=== PATIENT | male | born 1980 | race Caucasian/White ===

== ENCOUNTER 2018-02-14 08:40 | Emergency (ER) | payer MEDICARE, MEDICAID, SELFPAY ==
[2018-02-14 08:45] VITALS: BP 133/95; PULSE 110; RESP 16; TEMP 36.3; O2SAT 99
[2018-02-14] MEDS: Normal Saline 1,000 ML 1000 ML IV ×2 (09:20→10:20)
[2018-02-14 09:31] LABS: Abs Immature Grans 0.02 k/cumm (0.0-0.09); Absolute Basophil Count 0.02 k/cumm (0.0-0.2); Absolute Lymphocyte Count 1.54 k/cumm (1.2-3.4); Absolute Monocyte Count 0.71 k/cumm (0.11-0.7); Basophils % 0.2; Eosinophils % 0.4; HCT 43.6 % (40.0-50.0); HGB 14.5 g/dL (13.5-17.5); Immature Grans % 0.2; Lactate-non-spesis 0.8 mmol/L (0.6-1.4); Lymphocytes % 13.8; Mean Corp. HGB Concentration 33.3 g/dL (32.0-36.0); Mean Corpuscular Hemoglobin 30.4 pg (27.0-33.0); Mean Corpuscular Volume 91.4 fL (80-95); Mean Platelet Volume 11.1 fL (8.0-11.0); Monocytes % 6.4; Platelet Count 228 x1000/uL (130-400); RBC 4.77 m/cumm (4.50-6.00); RBC Distribution Width 12.8 % (11.8-14.1); White Blood Cell Count 11.17 k/cumm (4.4-10.8)
[2018-02-14 09:33] LABS: Absolute Eosinophil Count 0.04 k/cumm (0.0-0.7); Absolute Neutrophil Count 8.82 k/cumm (1.2-6.7)
[2018-02-14 09:49] LABS: ALT 23 U/L (12-78); AST 15 U/L (15-37); Albumin 3.9 g/dL (3.4-5.0); Alkaline Phosphatase 74 U/L (46-116); Anion Gap 10.4 mmol/L (3-11); BUN 10 mg/dL (7-18); Bilirubin, Total 0.9 mg/dL (0.2-1.0); CO2 26.6 mmol/L (21.0-32.0); CREATININE 0.82 mg/dL (0.70-1.30); Calcium 9.2 mg/dL (8.5-10.1); Chloride 100 mmol/L (98-107); Glucose 111 mg/dL (70-100); Potassium 3.8 mmol/L (3.5-5.1); Sodium 137 mmol/L (136-145); Total Protein 8.1 g/dL (6.4-8.2)
[2018-02-14] MEDS: CLINDAMYCIN 600 MG/50 ML BAG 100 MG IVPB (10:17)
[2018-02-14 10:24] VITALS: BP 137/84; PULSE 74; RESP 14; TEMP 37.2; O2SAT 100
[2018-02-14 11:25] VITALS: BP 140/95; PULSE 97; RESP 20; TEMP 36.5; O2SAT 99
--- NOTE | 2018-02-15 08:25 | W.ED.GENAD ---
Discharge Plan Disposition Patient Disposition: HOME Condition: Good Discharge Details Chief Complaint: Cellulitis Clinical Impression: Cellulitis, Abscess Primary Care Provider: Zia Puente ED Provider: Robbie Guillen Home Meds and New Rx's Prescriptions: New clindamycin HCl 150 mg capsule 450 mg PO TID 10 Days Qty: 90 RF: 0 acetaminophen [Mapap Extra Strength] 500 MG tablet 1,000 mg PO Q6H 5 Days Qty: 60 RF: 0 ibuprofen [Motrin IB] 200 MG tablet 600 mg PO Q6H 5 Days Qty: 60 RF: 0 No Action buprenorphine-naloxone [Suboxone] 1 EACH film 14 mg Sublingual DAILY RF: 0 buspirone 10 MG tablet 10 mg PO BID 30 Days Qty: 60 RF: 3 pregabalin 75 mg capsule 75 mg PO BID 90 Days Qty: 180 RF: 0 Discharge Instructions Instructions: Cellulitis (ED), Abscess (ED) Additional Instructions: Please take the antibiotic as directed. Do not miss any doses. Please follow-up with your primary care provider tomorrow morning. If you notice any worsening of your symptoms, or any new symptoms such as vomiting, spreading of your redness, diarrhea, fever, chills, shortness of breath, chest pain, numbness, weakness, or fainting , please return immediately to the emergency department for reevaluation. Please follow up with your primary care provider as soon as possible for reassessment and reevaluation. As always, it was a pleasure participating in your medical care today. Referrals: Zia Puente DO [Primary Care Provider] - Discharge Data Discharge Date/Time-TO BE ENTERED AT DEPARTURE: 02/14/18 11:36 Medical Decision Making This is a pleasant 37-year-old male who presents for evaluation of bilateral cellulitis over his wrists. He recently injected with a new type of heroin using 1 of his own dirty needles. Since then he has been having redness and swelling in the area. He denies having the needle broken off, or any other complications with the initial injection peer physical exam demonstrates 2 cellulitic areas with a diameter of roughly 6 cm one on each wrist at the lateral aspect at the distal radius. There is fluctuance noted and confirmed with bedside ultrasound. Patient also did have some associated mild tachycardia but no fever. Patient was started on IV clindamycin, rehydrated. Laboratory workup shows a minimally elevated white count at 11.17. His lactate is normal. Remainder of his laboratory workup is relatively benign. Rehydration his vital signs normalized. The patient's abscesses were incised, drained, and packed at bedside. He tolerated this well. He was given an antibiotic for oral clindamycin, and given very specific discharge instructions about the importance of close follow-up, antibiotic use, good hydration, and prompt return for any concerning red flags. With no signs of sepsis, I feel he can be safely discharged home. I have extensively reviewed the treatment plan and discharge instructions with the patient. I have addressed all patient concerns at this time. The patient was made aware of what symptoms to monitor for that would warrant a return to the emergency department. Discussed the plan with the patient, they demonstrate verbal understanding and agreement with our assessment and plan at this time. Left wrist: Time out was taken to identify the correct patient, procedure, and site. Risks and benefits were discussed with the patient and consent was obtained. Ultrasound was used to locate the site of maximal fluid collection on both wrists. The site was sterilized and draped in the typical fashion. Lidocaine 1% with epi 5ml was instilled into the surrounding tissue. Appropriate analgesia was obtained. The abscess was incised with an 11 blade, and a large amount of purulent material and blood were expressed. The wound was flushed with sterile saline under pressure irrigation with chlorhexidine. The wound was packed, cleaned, and dressed. Blood loss was minimal. The patient tolerated the procedure well. There were no complications. Postprocedure the patient continued to demonstrate good sensation, brisk capillary refill, normal radial and ulnar pulses. Right wrist: Time out was taken to identify the correct patient, procedure, and site. Risks and benefits were discussed with the patient and consent was obtained. Ultrasound was used to locate the site of maximal fluid collection on both wrists. The site was sterilized and draped in the typical fashion. Lidocaine 1% with epi 5ml was instilled into the surrounding tissue. Appropriate analgesia was obtained. The abscess was incised with an 11 blade, and a large amount of purulent material and blood were expressed. The wound was flushed with sterile saline under pressure irrigation with chlorhexidine. The wound was packed, cleaned, and dressed. Blood loss was minimal. The patient tolerated the procedure well. There were no complications. Postprocedure the patient continued to demonstrate good sensation, brisk capillary refill, normal radial and ulnar pulses. HPI General Date/Time Provider Initiated Documentation: 02/14/18 08:57. HPI Narrative: This is a 37-year-old male with a past medical history of tobacco abuse, IV drug use, hypertension, and alcohol abuse. He presents today for evaluation of cellulitis and abscess on his wrist bilaterally. Patient states that 3 days ago he injected in both of his wrists with a different batch of heroin that he would normally use. He was using a dirty needle, but it was one that he had only used. He denies looking the needle prior to use. He states that since then he has had redness and swelling in his distal lateral wrists bilaterally, with associated chills, occasional night sweats, and notable pain. He denies any numbness tingling or weakness. He denies any cough, fever, or shortness of breath. He denies any nausea, vomiting or diarrhea. He denies any other recent drug use. Patient has no other complaints at this time Related Data Home Medications Medication Instructions Recorded Confirmed buprenorphine-naloxone [Suboxone 8 14 mg SUBLINGUAL DAILY film 11/13/17 02/14/18 Mg-2 Mg Sl Film] buspirone 10 mg PO BID 30 Days #60 tab-cap 01/05/18 02/14/18 pregabalin 75 mg capsule 75 mg PO BID 90 Days #180 tab-cap 02/01/18 02/14/18 acetaminophen [Mapap Extra 1,000 mg PO Q6H 5 Days #60 tab 02/14/18 Strength] clindamycin HCl 450 mg PO TID 10 Days #90 cap 02/14/18 ibuprofen [Motrin Ib] 600 mg PO Q6H 5 Days #60 tab 02/14/18 Previous Rx's Medication Instructions Recorded buspirone 10 mg PO BID 30 Days #60 tab-cap 01/05/18 pregabalin 75 mg capsule 75 mg PO BID 90 Days #180 tab-cap 02/01/18 acetaminophen [Mapap Extra 1,000 mg PO Q6H 5 Days #60 tab 02/14/18 Strength] clindamycin HCl 450 mg PO TID 10 Days #90 cap 02/14/18 ibuprofen [Motrin Ib] 600 mg PO Q6H 5 Days #60 tab 02/14/18 Allergies Allergy/AdvReac Type Severity Reaction Status Date / Time No Known Allergies Allergy Unverified 02/14/18 08:57 General Stated Complaint: Cellulitis CHYNA: 3 Review of Systems Review of Systems All systems reviewed & are unremarkable except as noted in HPI and below PFSH Family History Mother Alcohol abuse Essential hypertension Mental disorder Father Alcohol abuse Brother Alcohol abuse Brother No problems noted. Social History Smoking/Tobacco Use Status: Current every day Exam Narrative Exam Narrative: 1.Const: Well-nourished, Well-developed, appearing stated age 2.Eyes: PERRL, no conjunctival injection, and symmetrical lids. 3.ENT: Atraumatic external nose and ears. Moist MM. Neck: Symmetric, trachea midline, No thyromegaly. 4.CVS: +S1/S2, No murmurs, friction rubs, or gallops. Peripheral pulses 2+ and equal in all extremities. Brisk capillary refill in all extremities. 5.RESP: Unlabored respiratory effort. Clear to auscultation bilaterally. No wheezes rales or rhonchi 6.GI: Soft, Nontender/Nondistended, No hepatosplenomegaly. No guarding or rebound. 7.MSK: Normocephalic/Atraumatic, patient's bilateral wrists demonstrate notable erythema, redness, swelling and fluctuance over the distal aspect of the radius bilaterally over his 2 injection sites. Each side is similar in findings. Each area has a erythematous diameter of roughly 6 cm, and a mild area of fluctuance in the center with a diameter of roughly 2 cm. No active drainage. Notable tenderness. Minimal pain with movement of his wrist. Normal movement, strength and sensation of his hand and fingers distally to the cellulitic areas. Compartments are soft. The erythema appears to be well contained to the area, with no significant spreading up the forearms 8.Skin: Please see musculoskeletal 9.Neuro: boot lace cutter machine II-XII grossly intact. Sensation grossly intact, no focal neurologic deficits. 10.Psych: (AAO) x3. Appropriate mood and affect Course Vital Signs Temperature 36.3 C L 02/14/18 08:45 Pulse 110 H 02/14/18 08:45 Respiratory Rate 16 02/14/18 08:45 Blood Pressure 133/95 H 02/14/18 08:45 Pulse Oximetry 99 02/14/18 08:45 Temperature 36.5 C 02/14/18 11:25 Temperature Source Skin 02/14/18 10:24 Pulse 97 H 02/14/18 11:25 Respiratory Rate 20 02/14/18 11:25 Respiratory Effort 02/14/18 08:54 Blood Pressure 140/95 H 02/14/18 11:25 Blood Pressure Position Sitting 02/14/18 08:45 Pulse Oximetry 99 02/14/18 11:25 Oxygen Delivery Method Room Air 02/14/18 10:24 Oxygen Flow Rate 0 02/14/18 10:24 Lab/Test Results Lab/Test Results: 02/14/18 11:15 Arm - Left Wound Culture - Pending 02/14/18 11:15 Arm - Left Gram Stain - Final 02/14/18 09:50 Blood Blood Culture - Pending 02/14/18 09:50 Blood Blood Culture - Pending Laboratory Tests Range/Units 02/14/18 02/14/18 02/14/18 09:20 09:20 09:20 WBC (4.4-10.8) k/cumm 11.17 H RBC (4.50-6.00) m/cumm 4.77 Hgb (13.5-17.5) g/dL 14.5 Hct (40.0-50.0) % 43.6 MCV (80-95) fL 91.4 MCH (27.0-33.0) pg 30.4 MCHC (32.0-36.0) g/dL 33.3 RDW (11.8-14.1) % 12.8 Plt Count (130-400) x1000/uL 228 MPV (8.0-11.0) fL 11.1 H Immature Gran % 0.2 Neutrophils % 79.0 Lymphocytes % 13.8 Monocytes % 6.4 Eosinophils % 0.4 Basophils % 0.2 Absolute Neutrophils (1.2-6.7) k/cumm 8.82 H Absolute Lymphocytes (1.2-3.4) k/cumm 1.54 Absolute Monocytes (0.11-0.7) k/cumm 0.71 H Absolute Eosinophils (0.0-0.7) k/cumm 0.04 Absolute Basophils (0.0-0.2) k/cumm 0.02 Sodium (136-145) mmol/L 137 Potassium (3.5-5.1) mmol/L 3.8 Chloride (98-107) mmol/L 100 Carbon Dioxide (21.0-32.0) mmol/L 26.6 Anion Gap (3-11) mmol/L 10.4 BUN (7-18) mg/dL 10 Creatinine (0.70-1.30) mg/dL 0.82 Estimated GFR/1.73 m2 (mL/min/1.73m2) >= 60.00 Glucose (70-100) mg/dL 111 H Lactate (0.6-1.4) mmol/L 0.8 Calcium (8.5-10.1) mg/dL 9.2 Total Bilirubin (0.2-1.0) mg/dL 0.9 AST (15-37) U/L 15 ALT (12-78) U/L 23 Alkaline Phosphatase (46-116) U/L 74 Total Protein (6.4-8.2) g/dL 8.1 Albumin (3.4-5.0) g/dL 3.9
== END 2018-02-14 11:36 | disposition home or self-care (01) ==
PROVIDERS: Emergency Provider Student in an Organized Health Care Education/Training Program; PCP Family Medicine
DX: L03.113 Cellulitis of right upper limb (principal); L02.413 Cutaneous abscess of right upper limb; L03.114 Cellulitis of left upper limb; L02.414 Cutaneous abscess of left upper limb; F19.10 Other psychoactive substance abuse, uncomplicated; I10 Essential (primary) hypertension
CPT/HCPCS: 10061; 36415; 80053; 87040; 87077; 96361; 96365; 99284; 83605; 85025; 87070; 87205

== ENCOUNTER 2018-04-05 02:01 | Outpatient (CLI) | payer MEDICARE, MEDICAID, SELFPAY | END 2018-04-05 02:21 | PROVIDERS: PCP Family Medicine; Visit Provider Family Medicine | DX: R06.2 Wheezing (principal); Z53.8 Procedure and treatment not carried out for other reasons ==

== ENCOUNTER 2019-09-27 01:17 | Outpatient (CLI) | payer MEDICARE, MEDICAID, SELFPAY ==
[2019-09-27 14:28] LABS: ESR 6 mm/hr (0-15)
[2019-09-27 14:48] LABS: C-Reactive Protein 0.07 mg/dL (0.0-0.3)
[2019-09-27 20:23] LABS: Cholesterol 272 mg/dL (<200); HDL Cholesterol 30 mg/dL (40-60); Triglyceride 479 mg/dL (<150)
[2019-09-27 20:38] LABS: LDL CHOLESTEROL 167 mg/dL (<100)
[2019-09-29 11:20] LABS: Lyme Ab w Rflx to Lyme Confirm Negative (Negative)
[2019-09-30 19:30] LABS: Anaplasma phagocytophilum Negative (Negative); B. miyamotoi PCR Negative (Negative); Babesia divergens/MO-1 Negative (Negative); Babesia duncani Negative (Negative); Babesia microti Negative (Negative); Ehrlichia chaffeensis Negative (Negative); Ehrlichia ewingii/canis Negative (Negative); Ehrlichia muris eauclairensis Negative (Negative)
== END 2019-09-27 01:37 ==
PROVIDERS: PCP Family Medicine; Visit Provider Family Medicine
DX: E78.9 Disorder of lipoprotein metabolism, unspecified (principal); M19.90 Unspecified osteoarthritis, unspecified site
CPT/HCPCS: 36415; 80061; 83721; 85652; 87798; 86140; 86618

== ENCOUNTER 2019-10-17 00:14 | Emergency (ER) | payer MEDICARE, MEDICAID, SELFPAY ==
[2019-10-17] VITALS (12 sets, daily range): BP systolic 128–160; BP diastolic 82–118; PULSE 91–115; RESP 12–24; TEMP 36.6; O2SAT 98–100
--- NOTE | 2019-10-17 00:15 | DI.CT_ITS ---
EXAM: CT CHEST PE ABD PELVIS W CLINICAL HISTORY: chest discomfort, tachycardia, abdominal distentio TECHNIQUE: COMPARISON: No exams were available for comparison FINDINGS: CT angiography of the chest abdomen and pelvis was performed with bolus infusion of 100 cc of Omnipaq ue 350. There is no evidence of pulmonary embolic disease. Thoracic aorta appears normal. No aneur ysm or dissection. Major branches appear intact. Tracheo bronchial tree appears intact. No mediastinal or hilar adenopathy. No pleural effusion. Lungs are predominantly clear. Minimal linear scarring noted in the lingula. A 6 millimeter intrapu lmonary nodule is seen in the left lower lobe posterolaterally, follow-up chest CT recommended in 6 m onths if there is a smoking history, 12 month follow-up for low risk patient. Abdominal aorta is of normal diameter. Major visceral branches appear normal. No abdominal or pelvi c adenopathy. No abdominal wall hernia. Liver and spleen are unremarkable in appearance as is the pancreas. Gallbladder and bile ducts are C T normal. Adrenals and kidneys are normal, no urinary tract calcification or obstruction. Appendix is normal. No evidence of diverticulitis or bowel obstruction. The urinary bladder is unre markable appearance. IMPRESSION: No evidence of pulmonary embolus. No evidence of acute vascular process of the chest, abdomen, or pe lvis. Incidental 6 millimeter left lower lobe intrapulmonary nodule, follow-up chest CT recommended in 6 mo nths for high risk patient, 12 months for low risk patient.
--- NOTE | 2019-10-17 00:31 | ED.GENADUL_ITS ---
Discharge Plan Disposition Patient Disposition: HOME Condition: Stable Discharge Details Chief Complaint: GenMedical Clinical Impression: Chest pain, Abdominal pain Primary Care Provider: Zia Puente ED Provider: Christiano Rowe Home Meds and New Rx's Prescriptions: Continued buspirone 30 mg tablet 30 mg PO BID Qty: 180 RF: 1 buprenorphine-naloxone [Suboxone] 8-2 mg film 20 mg Sublingual DAILY RF: 0 pregabalin [Lyrica] 150 mg capsule 150 mg PO TID Qty: 90 RF: 5 Discharge Instructions Instructions: Abdominal Pain (ED) Additional Instructions: your labs did not show anything concerning and the only thing the cat scan showed was a lung nodule which you should inform your primary care provider of as you should have follow up imaging done in 6-12 months follow up with your primary care provider within 1 week if symptoms continue return to the emergency department if you feel more ill, have worsening pain or fevers. Medical Decision Making 38 yo male with hx of prior narcotic abuse clean for years on suboxone, anxiety, htn, who the last few months has had joint pain and swelling and being worked up by pcp for cause (had negative tick panel recently) who comes in with a day of feeling abdominal distention and pain and intermittent chest discomfort. No n/v, fevers, chills, dyspnea. STates it does hurt to take a deep breath and on exam abdomen is not overly distended and is soft but is tender throughout the abdomen without guarding or rebound. Unclear etiology for symptoms. Will obtain labs and imaging to eval for cirrhosis, pancreatitis, masses. Given his chest discomfort and tachycardia and pleuritic pain wells score is medium so will obtain CTA of the chest. Heart score is 2 and ekg shows no acute ischemic findings so doubt acs. imaging and labs unremarkable and he remains HD stable HR now 90. Unclear cause for his symptoms of feeling distended suspect pain could be related to underlying arthritis. Will have him f/u with pcp and did inform him of the lung nodule seen on CT, return precautions given Differential Diagnosis Differential Diagnosis: cirrhosis, arthritis, PE, pancreatitis Medical Records Medical records reviewed: Yes I reviewed the patient's medical records. Imaging Data Radiologic Study: Attestation: I personally reviewed and interpreted this imaging study as follows: Imaging: CT Scan Radiologist's impression: IMPRESSION: 1. No pulmonary embolus. 2. Left lower lobe pulmonary nodule. 3. Linear atelectasis or fibrosis in the lingula IMPRESSION: Degenerative changes of the spine, as described above. Lab Data Lab results reviewed: Yes I reviewed the patient's lab results. ECG Data Attestation: I personally reviewed and interpreted this ECG (s) as follows: Prior ECG tracings: not available for review Interpretation: sinus tachycardia rate of 107, qtc 451, no acute st t wave ischemic findings HPI General Mode of arrival: ambulatory . Date/Time Provider Initiated Documentation: 10/17/19 00:16 . Limitations to Documentation: no limitations . Information obtained by: patient . History of Present Illness 38 year old M presents to the emergency department with the chief complaint of abdominal distention, described as moderate, Patient reports no radiation. Patient started experiencing this day(s) (1) and it has been constant. No relieving factors improve symptom(s), No exacerbating factors reported . Patient did receive the following treatments prior to arrival, none Related Data Home Medications Medication Instructions Recorded Confirmed buprenorphine 8 mg-naloxone 2 mg 20 mg SUBLINGUAL DAILY film 03/25/19 10/17/19 sublingual film buspirone 30 mg tablet 30 mg PO BID #180 tab 08/15/19 10/17/19 pregabalin 150 mg capsule 150 mg PO TID #90 cap 08/23/19 10/17/19 Previous Rx's Medication Instructions Recorded buspirone 30 mg tablet 30 mg PO BID #180 tab 08/15/19 pregabalin 150 mg capsule 150 mg PO TID #90 cap 08/23/19 Allergies Allergy/AdvReac Type Severity Reaction Status Date / Time No Known Allergies Allergy Verified 10/17/19 00:22 General Stated Complaint: GenMedical CHYNA: 3 Review of Systems All systems reviewed & are unremarkable except as noted in HPI and below Constitutional Constitutional: Denies chills, Denies fever(s) and Denies weakness Cardiovascular Cardiovascular: Denies dyspnea Respiratory Respiratory: Denies cough and Denies dyspnea Gastrointestinal Gastrointestinal: Denies vomiting Musculoskeletal Musculoskeletal: Denies joint swelling Neurologic Neurologic: Denies weakness PFSH Family History Mother Alcohol abuse Essential hypertension Mental disorder Father Alcohol abuse Brother Alcohol abuse Brother No problems noted. Social History (Updated 03/29/18 @ 10:18 by Jessica Tomlinson LPN) Smoking/Tobacco Use Status: Current every day Alcohol Intake: never Drug use: Current Sobriety Number of Children: 2 Water heater temp set <120 deg: Yes Working smoke detector in home: Yes Fire extinguisher in home: Yes Carbon monox detector in home: Yes Do you feel safe at home: Yes Do you feel safe in your relationship?: Yes Exam Const General: no acute distress Orientation: alert HENMT Head: normal to inspection Ears: external ears normal General nose exam: external nose normal Mouth: moist mucous membranes Eyes General: appearance normal, both eyes and all related structures Neck Neck: normal visual inspection Resp Effort & Inspection: normal respiratory effort and able to speak in complete sentences Cardio Rate: regular rate GI Palpation: soft Skin General skin exam: no rashes or lesions noted Neuro General: patient alert and patient oriented x3 Extrem General: normal to inspection Psych Mental Status: mental status grossly normal Course Vital Signs Vital signs: Vital Signs Temperature 36.6 C 10/17/19 00:19 Pulse 112 H 10/17/19 00:19 Respiratory Rate 18 10/17/19 00:19 Blood Pressure 160/103 H 10/17/19 00:19 Pulse Oximetry 98 10/17/19 00:19 Temperature 36.6 C 10/17/19 00:19 Temperature Source Temporal Artery Scan 10/17/19 00:19 Pulse 112 H 10/17/19 00:19 Respiratory Rate 18 10/17/19 00:19 Respiratory Effort 10/17/19 00:25 Respiratory Depth Normal 10/17/19 00:25 Respiratory Pattern Normal 10/17/19 00:25 Blood Pressure 160/103 H 10/17/19 00:19 Blood Pressure Position Sitting 10/17/19 00:19 Pulse Oximetry 98 10/17/19 00:19 Oxygen Delivery Method Room Air 10/17/19 00:19 Oxygen Flow Rate 0 10/17/19 00:19 Pain Level 4 10/17/19 00:19
[2019-10-17] MEDS: Ketorolac 15 MG/ML VIAL IVP (00:44)
[2019-10-17 00:54] LABS: Absolute Basophil Count 0.02 k/cumm (0.0-0.2); Absolute Eosinophil Count 0.16 k/cumm (0.0-0.7); Absolute Lymphocyte Count 2.85 k/cumm (1.2-3.4); Absolute Monocyte Count 0.36 k/cumm (0.11-0.7); Absolute Neutrophil Count 2.86 k/cumm (1.2-6.7); Basophils % 0.3; Eosinophils % 2.6; HCT 44.4 % (40.0-50.0); HGB 15.2 g/dL (13.5-17.5); Lymphocytes % 45.6; Mean Corp. HGB Concentration 34.2 g/dL (32.0-36.0); Mean Corpuscular Hemoglobin 30.3 pg (27.0-33.0); Mean Corpuscular Volume 88.6 fL (80-95); Mean Platelet Volume 10.3 fL (8.0-11.0); Monocytes % 5.8; Neutrophils % 45.7; Platelet Count 235 x1000/uL (130-400); RBC 5.01 m/cumm (4.50-6.00); RBC Distribution Width 13.4 % (11.8-14.1); White Blood Cell Count 6.25 k/cumm (4.4-10.8)
[2019-10-17] MEDS: Omnipaque 350 MG/ML 100 ML BTL IJ (00:58)
[2019-10-17 01:04] LABS: ALT 23 U/L (16-63); AST 21 U/L (15-37); Albumin 3.9 g/dL (3.4-5.0); Alkaline Phosphatase 61 U/L (46-116); Anion Gap 7.8 mmol/L (3-11); BUN 13 mg/dL (7-18); Bilirubin, Direct 0.23 mg/dL (0.00-0.20); Bilirubin, Total 0.9 mg/dL (0.2-1.0); CO2 30.2 mmol/L (21.0-32.0); Calcium 8.7 mg/dL (8.5-10.1); Chloride 101 mmol/L (98-107); Creatine Kinase 250 U/L (39-308); Glucose 94 mg/dL (74-106); Lipase 62 U/L (73-393); Potassium 3.8 mmol/L (3.5-5.1); Sodium 139 mmol/L (136-145); Total Protein 7.1 g/dL (6.4-8.2)
[2019-10-17 01:11] LABS: NT-proBNP 48 pg/mL (<300)
[2019-10-17 01:15] LABS: Troponin I < 0.05 ng/mL (<0.06)
[2019-10-17 01:16] LABS: PTT Activated 25.2 sec (21.0-31.4); Prothrombin Time 9.8 sec (9.3-11.0)
[2019-10-17 01:36] LABS: ETHANOL BLOOD < 3.0 mg/dL (<3)
[2019-10-17 01:37] LABS: Acetaminophen < 2 ug/mL (10-30)
--- NOTE | 2019-10-17 01:39 | DI.VRAD_ITS ---
PROCEDURE INFORMATION: Exam: CT Angiography Chest With Contrast Exam date and time: 10/17/2019 12:55 AM Age: 38 years old Clinical indication: Other: Chest discomfort, tachycardia; Other: Abdomen distention and lower limb swelling; Patient HX: Symptoms 1 month, worsening TECHNIQUE: Imaging protocol: Computed tomographic angiography of the chest with intravenous contrast. 3D rendering: MIP and/or 3D reconstructed images were created by the technologist. COMPARISON: No relevant prior studies available. FINDINGS: Pulmonary arteries: Normal. No pulmonary emboli. Aorta: Unremarkable. No aortic aneurysm. No aortic dissection. Lungs: There is a 6 mm nodule in the left lower lobe on axial image number 337, series 6. Linear atelectasis and/or fibrosis is seen in the lingula. Pleural space: Unremarkable. No pneumothorax. No pleural effusion. Heart: Unremarkable. No cardiomegaly. No pericardial effusion. Lymph nodes: Unremarkable. No enlarged lymph nodes. Bones/joints: Unremarkable. No acute fracture. Soft tissues: Unremarkable. IMPRESSION: 1. No pulmonary embolus. 2. Left lower lobe pulmonary nodule. 3. Linear atelectasis or fibrosis in the lingula. As per Fleischner Society guidelines for follow-up and management of pulmonary nodules: For patients at low risk (minimal or absent history of smoking and of other known risk factors), recommend follow-up chest CT at 12 months; if unchanged, no further follow-up. For patient at high risk (history of smoking or of other known risk factors), recommend initial follow-up chest CT at 6-12 months, then at 18-24 months if no interval change. PROCEDURE INFORMATION: Exam: CT Angiography Abdomen With Contrast Exam date and time: 10/17/2019 12:55 AM Age: 38 years old Clinical indication: Other: Chest discomfort, tachycardia; Other: Abdomen distention and lower limb swelling; Patient HX: Symptoms 1 month, worsening TECHNIQUE: Imaging protocol: Computed tomographic angiography images of the abdomen with intravenous contrast material. 3D rendering: MIP and/or 3D reconstructed images were created by the technologist. COMPARISON: No relevant prior studies available. FINDINGS: Aorta: No aortic aneurysm. No aortic dissection. Celiac trunk and mesenteric arteries: No occlusion or significant stenosis. Renal arteries: No occlusion or significant stenosis. Liver: Normal. No mass. Gallbladder and bile ducts: Normal. No calcified stones. No ductal dilation. Pancreas: Normal. No ductal dilation. Spleen: Normal. No splenomegaly. Adrenals: Normal. No mass. Kidneys and ureters: Normal. No hydronephrosis. Stomach and bowel: Unremarkable. No obstruction. No mucosal thickening. Appendix: The appendix is normal in appearance. Lymph nodes: Unremarkable. No enlarged lymph nodes. Intraperitoneal space: Unremarkable. No free air. No significant fluid collection. Bones/joints: Degenerative disc disease is demonstrated at L4-L5-S1 with narrowing of the intervertebral discs spaces and vacuum phenomena. Soft tissues: Unremarkable. IMPRESSION: Degenerative changes of the spine, as described above. Dictated and Authenticated by: Andrea Calvin MD. Ordering:LOURDES Alvarado MD
== END 2019-10-17 01:35 | disposition home or self-care (01) ==
PROVIDERS: Emergency Provider Emergency Medicine; PCP Family Medicine
DX: R07.81 Pleurodynia (principal); R91.1 Solitary pulmonary nodule; I10 Essential (primary) hypertension
CPT/HCPCS: 36415; 71275; 74177; 80053; 82550; 83690; 93005; 96374; 99285; 80320; 80329; 82248; 83735; 83880; 84484; 85025; 85610; 85730; 93010; 99284; J1885; J3490

== ENCOUNTER 2020-08-10 06:58 | Emergency (ER) | payer MEDICARE, MEDICAID, SELFPAY ==
[2020-08-10] VITALS (89 sets, daily range): BP systolic 102–154; BP diastolic 60–88; PULSE 59–140; RESP 14–25; TEMP 36.2; O2SAT 87–100
--- NOTE | 2020-08-10 06:45 | RT.EKG_ITS ---
APPROVED REPORT Exam: Resting ECG Patient Location: E HR:72 bpm ECG Measurements Heart Rate 72 AXIS OR 186 P 26 QRSd 103 QRS 65 QT 429 T 32 QTc 469 Conclusion Sinus rhythm...normal P axis, V-rate 60- 99 Normal [place] Nonspecific ST-T changes No STEMI
[2020-08-10] MEDS: Naloxone 0.4 MG/ML VIAL IVP ×3 (07:04→10:47)
--- NOTE | 2020-08-10 07:11 | ED.GENADUL_ITS ---
Discharge Plan Disposition Patient Disposition: HOME Condition: Good Discharge Details Clinical Impression: Altered mental status, Somnolence, Pinpoint pupils noted on examination, Polysubstance abuse Primary Care Provider: Zia Puente ED Provider: Alvina Harding Home Meds and New Rx's Prescriptions: Continued buspirone 30 mg tablet 30 mg PO BID Qty: 180 RF: 1 buprenorphine-naloxone [Suboxone] 8-2 mg film 20 mg Sublingual DAILY RF: 0 prednisone 10 mg tablet 10 mg PO DAILY Qty: 30 RF: 0 folic acid 1 mg tablet 1 mg PO DAILY RF: 0 methotrexate sodium 2.5 mg tablet 10 mg PO QWEEK RF: 0 pregabalin [Lyrica] 150 mg capsule 150 mg PO TID Qty: 90 RF: 5 Discharge Instructions Instructions: Cocaine Abuse (ED), Altered Mental Status (ED), Opioid Safety (ED) Additional Instructions: It was suspected based upon your physical exam that you had an overdose of an opiate or another substance. Your urine drug screen was positive for cocaine and benzodiazepines. The remainder of your lab work and imaging was reassuring and does not show any significant abnormalities. Avoid abuse of illegal substances. As you are unsure of the exact events of today, be sure to discuss with friends or family and to the police if needed for additional information or assistance. Drink plenty of fluids and get plenty of rest. You can go to the [facility] clinic tomorrow for your Suboxone dosing for the weekend. You will have to return there on Thursday morning for your regular weekly dosages. Follow-up with your primary care doctor in 1 week. Return to the emergency department with any worsening or new concerning symptoms. Discharge Data Discharge Date/Time-TO BE ENTERED AT DEPARTURE: 08/10/20 15:30 Discharge Physician: Alvina Harding Medical Decision Making <Graham Pantoja MD - Last Filed: 08/11/20 00:04> Patient arrives unresponsive except to loud verbal stimuli or noxious stimuli. Patient with pinpoint pupils. Per old records history of substance abuse. Most likely opiate overdose. Right external jugular IV placed by me. Laboratory studies obtained. 0.4 mg Narcan IV given. Patient respirations improved. He remained asleep. Room air saturations greater than 97% with normal heart rate and blood pressure. Fluids started. Fingerstick sugar was okay. Head CT ordered. We will continue to monitor and give Narcan as needed. ECG Data Attestation: I personally reviewed and interpreted this ECG (s) as follows: Prior ECG tracings: not available for review Interpretation: see EKG <Alvina Harding DO - Last Filed: 08/10/20 14:51> 0745 -- please see Dr. Pantoja's note for initial presentation, exam and plan. Case endorsed to follow-up on labs and imaging and final disposition. 829 -- CT head negative. Patient given second dose of 0.4 mg Narcan after return from radiology and slightly more arousable, snoring and yawning and turning over on his side on his own. Patient fully undressed and no evidence of trauma. Labs reviewed. White blood cell count 12. Normal electrolytes. Anion gap 12. Troponin negative. Normal salicylates, acetaminophen. UDS positive for benzos and cocaine but negative for opiates. Alcohol level negative. We will continue to monitor patient until more awake and alert. 0920 -- patient remains somnolent but protecting his airway. Vitals within normal limits. Oxygen saturation 97%, not requiring supplemental O2. End-tidal CO2 monitoring remains in the mid 30s. 0945 --discussed with pt's therapist Narciso at the [facility]. They state patient has been on Suboxone for the past few years for previous history of IV drug abuse. Patient receives a weekly packet on Thursday morning of Suboxone 22 mg. He did not show up there today. He stated he has had a recent negative UDS on 07/20 but has been positive for cocaine for the past few months. 1045 --patient still somnolent. Patient given 0.8 mg Narcan x1 with some response, opening eyes but no verbal response. Remains hemodynamically stable. 1230 --patient now awake and alert. He states he slept in his apartment last night but does not recall the events of this morning. He does not recall taking any narcotics or opiates. He states he used cocaine a few days ago but denies any other recent drug use. He states he is unsure how he was in the breezeway at [facility] this morning. Patient denies any acute complaints. Will give patient food and attempt to ambulate. He has no meningeal signs or focal deficits. History and presentation does not appear consistent with meningitis. 1415 --patient awake and alert and eating a sandwich. He was able to ambulate and denied any complaints of dizziness, headache or neck pain. He is hemodynamically stable. Pupils now normal size. Suspect that patient's presentation most likely consistent with overdose of an opiate or another substance. He is still endorsing that he is unsure of the events of this morning. Patient feels good to go home. He was offered to speak to the musician instrumental but declined. He is advised to go to the [facility] tomorrow for his Suboxone dosing this weekend and to return there Thursday for his weekly dosages. Advised to follow up with the primary care doctor for re-evaluation. Usual and customary return precautions given prior to discharge. Medical Records Medical records reviewed: Yes I reviewed the patient's medical records. Imaging Data Radiologic Study: Radiologist's impression: CT HEAD WO CLINICAL HISTORY: altered. TECHNIQUE: Imaging Protocol: Axial computed tomography images with coronal and sagittal reformatted images were created and reviewed COMPARISON: No exams were available for comparison FINDINGS: The ventricular system is normal in appearance. No evidence of acute intracranial hemorrhage, mass effect, or midline shift. The orbital structures are unremarkable. The temporal bone structures appear intact. Calvarium: Normal. Note is made of mucoperiosteal thickening of the right maxillary antrum consistent with chronic sinus disease and there is an air-fluid level noted as well which may represent superimposed acute sinusitis. IMPRESSION: No evidence of acute intracranial injury. XR PORTABLE CHEST AP CLINICAL HISTORY: respiratory depression, r/o acute disease. TECHNIQUE: 2D digital imaging was performed. COMPARISON: No exams were available for comparison FINDINGS: LUNGS: Clear. No pleural abnormality seen. HEART: Normal. MEDIASTINUM: Normal. OTHER FINDINGS: None. IMPRESSION: No acute pulmonary findings. Lab Data Lab results reviewed: Yes I reviewed the patient's lab results. Labs: Laboratory Tests Range/Units 08/10/20 08/10/20 08/10/20 07:00 07:00 07:00 WBC (4.4-10.8) 10^3/uL 12.10 H RBC (4.36-5.78) 10^6/uL 4.84 Hgb (13.5-17.5) g/dL 14.8 Hct (40.0-50.0) % 45.0 MCV (80-95) fL 93.0 MCH (27.0-33.0) pg 30.6 MCHC (32.0-36.0) % 32.9 RDW (11.8-14.1) % 12.2 Plt Count (130-400) 10^3/uL 235 MPV (8.0-11.0) fL 10.6 Immature Gran % 0.3 Neutrophils % 76.2 Lymphocytes % 18.3 Monocytes % 4.8 Eosinophils % 0.2 Basophils % 0.2 Nucleated RBC % % 0 Absolute Neutrophils (1.2-6.7) 10^3/uL 9.22 H Absolute Lymphocytes (1.2-3.4) 10^3/uL 2.21 Absolute Monocytes (0.1-0.8) 10^3/uL 0.58 Absolute Eosinophils (0.0-0.7) 10^3/uL 0.02 Absolute Basophils (0.0-0.2) 10^3/uL 0.02 Sodium (136-145) mmol/L 142 Potassium (3.5-5.1) mmol/L 3.8 Chloride (98-107) mmol/L 104 Carbon Dioxide (21.0-32.0) mmol/L 25.9 Anion Gap (3-11) mmol/L 12.1 H BUN (7-18) mg/dL 15 Creatinine (0.70-1.30) mg/dL 0.9 Estimated GFR/1.73 m2 (mL/min/1.73m2) >= 60.00 Glucose (74-106) mg/dL 75 Calcium (8.5-10.1) mg/dL 9.1 Magnesium (1.8-2.4) mg/dL 2.3 Total Bilirubin (0.2-1.0) mg/dL 0.8 AST (15-37) U/L 22 ALT (16-63) U/L 28 Alkaline Phosphatase (46-116) U/L 76 Creatine Kinase (39-308) U/L Troponin I (<0.06) ng/mL < 0.05 Total Protein (6.4-8.2) g/dL 7.8 Albumin (3.4-5.0) g/dL 4.4 Urine Color (Yellow) Urine Clarity (Clear) Urine pH (5-8) Ur Specific [place] (1.005-1.025) Urine Protein (Negative) mg/dL Urine Ketones (Negative) mg/dL Urine Blood (Negative) Urine Nitrite (Negative) Urine Bilirubin (Negative) Urine Urobilinogen (Up TO 0.2) EU/dL Ur Leukocyte Esterase (Negative) Urine RBC (0-2) HPF Urine WBC (0-5) HPF Ur Epithelial Cells (Negative) HPF Urine Crystals (Negative) HPF Urine Bacteria (Negative) HPF Urine Casts (Negative) LPF Urine Mucus (Negative) Ur Culture Indicated? Urine Glucose (Negative) mg/dL Salicylates (<2.8) mg/dL 4.1 Urine Opiates Screen (Negative) Urine Methadone Screen (Negative) Acetaminophen (10-30) ug/mL < 2 Ur Barbiturates Screen (Negative) Ur Tricyclics Screen (Negative) Ur Amphetamines Screen (Negative) U Benzodiazepines Scrn (Negative) Urine Cocaine Screen (Negative) Ur THC Screen (Negative) Ethyl Alcohol (<3) mg/dL < 3.0 Range/Units 08/10/20 08/10/20 08/10/20 07:30 07:30 10:24 WBC (4.4-10.8) 10^3/uL RBC (4.36-5.78) 10^6/uL Hgb (13.5-17.5) g/dL Hct (40.0-50.0) % MCV (80-95) fL MCH (27.0-33.0) pg MCHC (32.0-36.0) % RDW (11.8-14.1) % Plt Count (130-400) 10^3/uL MPV (8.0-11.0) fL Immature Gran % Neutrophils % Lymphocytes % Monocytes % Eosinophils % Basophils % Nucleated RBC % % Absolute Neutrophils (1.2-6.7) 10^3/uL Absolute Lymphocytes (1.2-3.4) 10^3/uL Absolute Monocytes (0.1-0.8) 10^3/uL Absolute Eosinophils (0.0-0.7) 10^3/uL Absolute Basophils (0.0-0.2) 10^3/uL Sodium (136-145) mmol/L Potassium (3.5-5.1) mmol/L Chloride (98-107) mmol/L Carbon Dioxide (21.0-32.0) mmol/L Anion Gap (3-11) mmol/L BUN (7-18) mg/dL Creatinine (0.70-1.30) mg/dL Estimated GFR/1.73 m2 (mL/min/1.73m2) Glucose (74-106) mg/dL Calcium (8.5-10.1) mg/dL Magnesium (1.8-2.4) mg/dL Total Bilirubin (0.2-1.0) mg/dL AST (15-37) U/L ALT (16-63) U/L Alkaline Phosphatase (46-116) U/L Creatine Kinase (39-308) U/L 246 Troponin I (<0.06) ng/mL Total Protein (6.4-8.2) g/dL Albumin (3.4-5.0) g/dL Urine Color (Yellow) Yellow Urine Clarity (Clear) Clear Urine pH (5-8) 6.0 Ur Specific [place] (1.005-1.025) 1.025 Urine Protein (Negative) mg/dL Trace H Urine Ketones (Negative) mg/dL 40 H Urine Blood (Negative) Trace-intact H Urine Nitrite (Negative) Negative Urine Bilirubin (Negative) Small H Urine Urobilinogen (Up TO 0.2) EU/dL 0.2 Ur Leukocyte Esterase (Negative) Negative Urine RBC (0-2) HPF 10-20 H Urine WBC (0-5) HPF 3-5 Ur Epithelial Cells (Negative) HPF Few Urine Crystals (Negative) HPF Negative Urine Bacteria (Negative) HPF Negative Urine Casts (Negative) LPF Negative Urine Mucus (Negative) Moderate Ur Culture Indicated? No Urine Glucose (Negative) mg/dL Negative Salicylates (<2.8) mg/dL Urine Opiates Screen (Negative) Negative Urine Methadone Screen (Negative) Negative Acetaminophen (10-30) ug/mL Ur Barbiturates Screen (Negative) Negative Ur Tricyclics Screen (Negative) Negative Ur Amphetamines Screen (Negative) Negative U Benzodiazepines Scrn (Negative) Positive A Urine Cocaine Screen (Negative) Positive A Ur THC Screen (Negative) Negative Ethyl Alcohol (<3) mg/dL ECG Data Attestation: I personally reviewed and interpreted this ECG (s) as follows: Interpretation: Rate of 72, sinus, no acute ST elevation or depression. SD 186. QTc 469. QRS 103. HPI <Graham Pantoja MD - Last Filed: 08/11/20 00:04> General Mode of arrival: EMS . Date/Time Provider Initiated Documentation: 08/10/20 07:07 . Limitations to Documentation: altered mental status . Information obtained by: EMS . HPI Narrative: Patient brought in by ambulance after he was found in their breezeway unresponsive. He arrived with pinpoint pupils and altered. He does arouse to loud verbal stimuli as well as noxious stimuli. Unknown how long he had been in the breezeway. He is cold and wet. No obvious signs of trauma. Transported without intervention as they would just right next door. Related Data Home Medications Medication Instructions Recorded Confirmed buprenorphine 8 mg-naloxone 2 mg 20 mg SUBLINGUAL DAILY film 03/25/19 08/10/20 sublingual film buspirone 30 mg tablet 30 mg PO BID #180 tab 08/15/19 08/10/20 folic acid 1 mg tablet 1 mg PO DAILY 12/19/19 08/10/20 prednisone 10 mg tablet 10 mg PO DAILY #30 tab 12/19/19 08/10/20 methotrexate sodium 2.5 mg tablet 10 mg PO QWEEK tab 02/17/20 08/10/20 pregabalin 150 mg capsule 150 mg PO TID #90 cap 02/28/20 08/10/20 Previous Rx's Medication Instructions Recorded buspirone 30 mg tablet 30 mg PO BID #180 tab 08/15/19 prednisone 10 mg tablet 10 mg PO DAILY #30 tab 12/19/19 pregabalin 150 mg capsule 150 mg PO TID #90 cap 02/28/20 Allergies Allergy/AdvReac Type Severity Reaction Status Date / Time No Known Allergies Allergy Verified 11/04/19 14:35 General Stated Complaint: OD/Poison CHYNA: 2 Review of Systems <Graham Pantoja MD - Last Filed: 08/11/20 00:04> Unobtainable due to mental status PFS <Graham Pantoja MD - Last Filed: 08/11/20 00:04> Medical History Adjustment disorder with mixed anxiety and depressed mood (01/05/18) Essential hypertension (07/24/17) Surgical History No significant past surgical history Family History Mother Alcohol abuse Essential hypertension Mental disorder Father Alcohol abuse Brother Alcohol abuse Brother No problems noted. Social History Smoking/Tobacco Use Status: Current every day Smoking risk assessment performed?: Yes Alcohol Intake: never Number of Children: 2 Water heater temp set <120 deg: Yes Working smoke detector in home: Yes Fire extinguisher in home: Yes Carbon monox detector in home: Yes Do you feel safe at home: Yes Do you feel safe in your relationship?: Yes Exam <Graham Pantoja MD - Last Filed: 08/11/20 00:04> Narrative Exam Narrative: Const: WDWN male altered/asleep. HEENT: NC/AT. Normal facial exam. Eyes: Pinpoint pupils unreactive. Neck: Supple. Trachea midline. Lungs: Snoring respirations. Lungs are clear. Cor: RRR without murmur/gallop. Good radial pulses. GI: Soft and ND. Neuro: Arouses to noxious as well as loud verbal stimuli. Moves all extremities x4. Ext: No C/C/E. Skin: Cold and wet without rash. Course <Graham Pantoja MD - Last Filed: 08/11/20 00:04> Vital Signs Vital signs: Vital Signs Temperature 97.2 F L 08/10/20 06:59 Pulse 69 08/10/20 06:59 Respiratory Rate 19 08/10/20 06:59 Blood Pressure 124/84 08/10/20 06:59 Pulse Oximetry 96 08/10/20 06:59 Temperature 97.2 F L 08/10/20 06:59 Temperature Source Temporal Artery Scan 08/10/20 06:59 Pulse 69 08/10/20 06:59 Respiratory Rate 18 08/10/20 07:06 Respiratory Effort Non-Labored 08/10/20 07:06 Respiratory Depth Normal 08/10/20 07:06 Respiratory Pattern Normal 08/10/20 07:06 Blood Pressure 124/84 08/10/20 06:59 Blood Pressure Position Supine 08/10/20 06:59 Pulse Oximetry 96 08/10/20 06:59 Oxygen Delivery Method Room Air 08/10/20 06:59 Oxygen Flow Rate 0 08/10/20 06:59 Procedures <Graham Patnoja MD - Last Filed: 08/11/20 00:04> EJ/Peripheral Line Neck R: Time Out Performed: No Skin Cleansed in Sterile Fashion: Yes Size (gauge): 18 IV Secured and Dressing Applied: Yes Patient Tolerated Procedure: well Sign Out <Graham Pantoja MD - Last Filed: 08/11/20 00:04> Sign Out Data: Sign Out Comment: Patient signed out to Dr. Harding pending laboratory studies and head CT results. Ordered for as needed Narcan as needed. Last updated by Graham Pantoja MD at 08/10/20 07:27
[2020-08-10] MEDS: Lactated Ringers 1,000 ML 200 ML IV (07:16)
[2020-08-10 07:19] LABS: Abs Immature Grans 0.04 10^3/uL (0.0-0.06); Absolute Eosinophil Count 0.02 10^3/uL (0.0-0.7); Absolute Monocyte Count 0.58 10^3/uL (0.1-0.8); Basophils % 0.2; Eosinophils % 0.2; HGB 14.8 g/dL (13.5-17.5); Immature Grans % 0.3; Lymphocytes % 18.3; MCH 30.6 pg (27.0-33.0); MCHC 32.9 % (32.0-36.0); MPV 10.6 fL (8.0-11.0); Monocytes % 4.8; Neutrophils % 76.2; Nucleated RBC 0 %; Platelet Count 235 10^3/uL (130-400); RBC 4.84 10^6/uL (4.36-5.78); RDW 12.2 % (11.8-14.1); RDW-SD 42.2 fL
[2020-08-10 07:20] LABS: Absolute Basophil Count 0.02 10^3/uL (0.0-0.2); Absolute Lymphocyte Count 2.21 10^3/uL (1.2-3.4); Absolute Neutrophil Count 9.22 10^3/uL (1.2-6.7)
[2020-08-10 07:38] LABS: ALT 28 U/L (16-63); AST 22 U/L (15-37); Albumin 4.4 g/dL (3.4-5.0); Alkaline Phosphatase 76 U/L (46-116); Anion Gap 12.1 mmol/L (3-11); BUN 15 mg/dL (7-18); Bilirubin, Total 0.8 mg/dL (0.2-1.0); CO2 25.9 mmol/L (21.0-32.0); CREATININE 0.9 mg/dL (0.70-1.30); Calcium 9.1 mg/dL (8.5-10.1); Chloride 104 mmol/L (98-107); Glucose 75 mg/dL (74-106); Magnesium 2.3 mg/dL (1.8-2.4); Potassium 3.8 mmol/L (3.5-5.1); Sodium 142 mmol/L (136-145); Total Protein 7.8 g/dL (6.4-8.2); Troponin I < 0.05 ng/mL (<0.06)
--- NOTE | 2020-08-10 07:45 | DI.RAD_ITS ---
EXAM: XR PORTABLE CHEST AP CLINICAL HISTORY: respiratory depression, r/o acute disease. TECHNIQUE: 2D digital imaging was performed. COMPARISON: No exams were available for comparison FINDINGS: LUNGS: Clear. No pleural abnormality seen. HEART: Normal. MEDIASTINUM: Normal. OTHER FINDINGS: None. IMPRESSION: No acute pulmonary findings. DATA REPOSITORY: RADIATION DOSE DELIVERED: Total DLP
--- NOTE | 2020-08-10 07:45 | RESPIRATORY ---
RT asked by ER nurse Beverly to evaluate patient as has snoring respirations and very sleepy after having Narcan 1x. RT sat patient up and place him on a EtCO2 Nasal Cannula to monitor vitals. Vitals were: 96% RA, HR 68, RR 17 CO2 35 with ear probe. Nurse administered Narcan another time while RT was there, vitals stable. RT asked nursing if ok to leave as SpO2 better and snoring breathing has mostly disappeared. RT free to leave, RT told Nursing to call if needed again.
[2020-08-10 07:46] LABS: Salicylate 4.1 mg/dL (<2.8)
[2020-08-10 07:47] LABS: Acetaminophen < 2 ug/mL (10-30)
--- NOTE | 2020-08-10 07:47 | DI.CT_ITS ---
EXAM: CT HEAD WO CLINICAL HISTORY: altered. TECHNIQUE: Imaging Protocol: Axial computed tomography images with coronal and sagittal reformatted images were created and reviewed COMPARISON: No exams were available for comparison FINDINGS: The ventricular system is normal in appearance. No evidence of acute intracranial hemorrhage, mass effect, or midline shift. The orbital structures are unremarkable. The temporal bone structures appear intact. Calvarium: Normal. Note is made of mucoperiosteal thickening of the right maxillary antrum consistent with chronic sinus disease and there is an air-fluid level noted as well which may represent superimposed acute sinusit is. IMPRESSION: No evidence of acute intracranial injury. RADIATION DOSE DELIVERED: 1,062.97mGy.cm Total DLP 1,062.97mGy.cm Total DLP DATA REPOSITORY: All CT scans at this facility are submitted to the National Radiology Data Registry (NRDR) Dose Index Registry (DIR) with the [employer] ([employer]). RADIATION OPTIMIZATION: All CT scans at this facility use at least one of these dose optimization te chniques: automated exposure control; mA and/or kV adjustment per patient size (includes targeted exa ms where dose is matched to clinical indication); or iterative reconstruction.
[2020-08-10 07:50] LABS: ETHANOL BLOOD < 3.0 mg/dL (<3)
[2020-08-10] MEDS: Lidocaine 2% Jelly 6 ML SYR (07:51)
[2020-08-10 07:53] LABS: *AMPHETAMINES SCREEN URINE Negative (Negative); *BARBITURATES SCREEN URINE Negative (Negative); *BENZODIAZEPINES SCREEN URINE POSITIVE (Negative); Cannabinoids THC Negative (Negative); Cocaine Screen,Urine POSITIVE (Negative); METHADONE URINE SCREEN Negative (Negative); OPIATES URINE SCREEN Negative (Negative); Tricyclic Antidepressants Negative (Negative)
[2020-08-10 10:43] LABS: Creatine Kinase 246 U/L (39-308)
[2020-08-10] MEDS: Naloxone 0.4 MG/ML VIAL 0.8 MG IVP (11:33)
[2020-08-10] MEDS: Lactated Ringers 1,000 ML 1000 ML IV (11:43)
[2020-08-10 12:21] LABS: Bilirubin Small (Negative); Blood Trace-intact (Negative); Clarity Clear (Clear); Glucose Negative (Negative); Ketones 40 mg/dL (Negative); Leukocyte Esterase Negative (Negative); Nitrite Negative (Negative); Specific Gravity 1.025 (1.005-1.025); Urobilinogen 0.2 EU/dL (Up TO 0.2)
[2020-08-10 12:29] LABS: Bacteria Negative HPF (Negative); C & S Indicated? No; Casts Negative LPF (Negative); Crystals Negative HPF (Negative); Epithelial Cells Few HPF (Negative); Mucus Moderate (Negative)
--- NOTE | 2020-08-10 15:10 | NUR.NOTE ---
Nursing Note:Patient attempting to call his daughter and girlfriend for a ride. Patient does not recall the events prior to his arrival to the ER or his arrival to the ER.
== END 2020-08-10 15:30 | disposition home or self-care (01) ==
PROVIDERS: Emergency Medicine; Emergency Provider Physician Assistant; PCP Family Medicine
DX: R41.82 Altered mental status, unspecified (principal); F14.10 Cocaine abuse, uncomplicated; R06.89 Other abnormalities of breathing; H57.03 Miosis; F11.20 Opioid dependence, uncomplicated
CPT/HCPCS: 36416; 51701; 80053; 80307; 82550; 82962; 93005; 96361; 96374; 96376; 99285; 70450; 71045; 80320; 80329; 81003; 81015; 83735; 84484; 85025; 93010; 99284; J2310